=== PATIENT | female | born 1950 | race Caucasian/White ===

== ENCOUNTER 2016-09-19 22:15 | Emergency (ER) | payer MEDICARE ==
[~2016-09-19] VITALS: Ht 162.6 cm; Wt 82.0 kg
[~2016-09-19 22:15] MED LIST: ANTIVERT 25MG25 MG PO; ASPIRIN 32325 MG/TAB PO; ASPIRIN 81M81 MG/TA2 PO; ATIVAN1 MG PO; BUSPAR5 MG PO; CEPHALEXIN500 M1 PO; ESCITALOPRAM PO; FLEXERIL 1010 MG/TAB PO; LASIX; LEVOTHYROXINE PO; LISINOPRIL PO; LOMOTIL 0.025 M1 TAB PO; NAPROSYN500 MG PO; NORCO 325 MG-51 TAB PO; NORVASC 5MG5 MG/TAB PO; NORVASC2.5 MG PO; PEXEVA40 MG PO; SUPER EPA 1201200 MG PO; SYNTHROID0.3 MG PO; TRICOR145 MG PO; XANAX 1MG1 MG PO; ZESTRIL 20MG TA20 MG PO; ZETIA10 MG PO
[2016-09-19 22:30] VITALS: BP 149/97; TEMP 98
[2016-09-20] MEDS ORDERED: NORCO 325 MG-51 TAB PO (00:15)
[2016-09-20] MEDS ORDERED: VALIUM 2MG T2 MG/TAB PO (00:15)
[2016-09-20 00:28] VITALS: PULSE 72
== END 2016-09-20 00:29 | disposition home or self-care (01) ==
LOC: COL.ER 22:15
DX: S39.012A Strain of muscle, fascia and tendon of lower back, initial encounter (principal); I10 Essential (primary) hypertension; E03.9 Hypothyroidism, unspecified; F41.9 Anxiety disorder, unspecified; Z90.49 Acquired absence of other specified parts of digestive tract; Z90.710 Acquired absence of both cervix and uterus; Z98.890 Other specified postprocedural states; X50.0XXA Overexertion from strenuous movement or load, initial encounter

== ENCOUNTER 2017-04-16 18:42 | Emergency (ER) | payer MEDICARE ==
[~2017-04-16] VITALS: Ht 160 cm; Wt 75.9 kg
[~2017-04-16 18:42] MED LIST changes: +VALIUM 2MG T2 MG/TAB PO
[2017-04-16 18:43] VITALS: TEMP 98
[2017-04-16 19:36] LABS: BASO % 0.7 % (0.0-2.0); EOS # 0.1 (0.0-0.7); GRAN # 2.4 (1.4-6.5); GRAN % 54.3 % (42.2-75.2); HEMOGLOBIN 14.3 g/dl (12.5-16.0); LYMPH # 1.5 (1.2-3.4); LYMPH % 35.4 % (20.0-51.0); MEAN CELL VOLUME 91 fl (80.0-100.0); MEAN CORPUSCULAR HEMOGLOBIN 32 pg (27.0-31.0); MEAN CORPUSCULAR HGB CONC 35 g/dl (33.0-37.0); MEAN PLATELET VOLUME 10.3 fl (7.4-10.4); MONO # 0.3 (0.1-0.6); MONO % 6.4 % (1.7-9.3); PLATELET COUNT 189 K/mm3 (130-400); RED BLOOD COUNT 4.51 M/mm3 (4.10-5.30); WHITE BLOOD COUNT 4.4 K/mm3 (4.8-10.8)
[2017-04-16 19:46] LABS: ALANINE AMINOTRANSFERASE 20 U/L (9-52); ALBUMIN 4.4 gm/dL (3.5-5.0); ALKALINE PHOSPHATASE 57 U/L (50-136); ANION GAP 10 mmol/L (7-16); BILIRUBIN,TOTAL 1.5 mg/dL (0.0-1.0); BLOOD UREA NITROGEN 16 mg/dL (7-17); CALCIUM 9.3 mg/dL (8.4-10.2); CARBON DIOXIDE 28 mmol/L (22-30); CHLORIDE 100 mmol/L (98-107); CREATININE, serum 0.87 mg/dL (0.52-1.25); GLUCOSE 97 mg/dL (74-106); POTASSIUM 3.2 mmol/L (3.4-5.0); SODIUM 138 mmol/L (137-145); TOTAL PROTEIN 7.6 gm/dL (6.4-8.2)
[2017-04-16 19:47] LABS: C-REACTIVE PROTEIN < 0.5 mg/dL (0.0-0.9)
[2017-04-16 20:01] LABS: COLLECTION METHOD CLEAN CATCH
[2017-04-16 20:07] LABS: MUCOUS Present /lpf; PH 7 (5-8); SQUAMOUS EPITHELIAL 0-2 /hpf; URINE APPEARANCE Clear; URINE BACTERIA None Seen /hpf; URINE BILIRUBIN Negative (NEGATIVE); URINE BLOOD 1+ (NEGATIVE); URINE COLOR Yellow; URINE GLUCOSE Negative (NEGATIVE); URINE KETONE Negative (NEGATIVE); URINE LEUKOCYTE ESTERASE Negative (NEGATIVE); URINE PROTEIN(semi-quant) 1+ (NEGATIVE); URINE RBC 0-2 /hpf; URINE UROBILINOGEN Negative (NEGATIVE); URINE WBC 0-2 /hpf
[2017-04-16] MEDS ORDERED: NORVASC 5MG5 MG/TAB PO (22:39)
[2017-04-16] MEDS ORDERED: ZESTRIL 20MG TA20 MG PO (22:39)
[2017-04-17] VITALS (403 sets, daily range): BP systolic 140; BP diastolic 82; PULSE 81; O2SAT 86–100
[2017-04-17] MEDS ORDERED: SYNTHROID 0.10.15 MG PO (14:22)
[2017-04-17] MEDS ORDERED: PAXIL40 MG PO (14:24)
[2017-04-17] MEDS ORDERED: ASPIRIN E.C. 8181 MG PO (14:26)
[2017-04-18] VITALS (505 sets, daily range): O2SAT 86–100
[2017-04-19] VITALS (328 sets, daily range): O2SAT 81–99
== END 2017-04-17 00:01 | disposition home or self-care (01) ==
LOC: COL.ER 18:42
PROVIDERS: Emergency Medicine
DX: G45.9 Transient cerebral ischemic attack, unspecified (principal); I10 Essential (primary) hypertension; E87.6 Hypokalemia; F41.9 Anxiety disorder, unspecified; R41.82 Altered mental status, unspecified; E03.9 Hypothyroidism, unspecified; F32.9 Major depressive disorder, single episode, unspecified
CPT/HCPCS: J2765